=== PATIENT | female | born 1995 | race Caucasian/White ===

== ENCOUNTER 2016-04-16 22:27 | Emergency (ER) | payer MEDICAID, OTHER ==
--- NOTE | 2016-04-16 23:00 | EDPHY ---
H & P Stated Complaint: abd pain.left LQ radiate thru back Time Seen by Provider: 04/16/16 22:52 HPI/ROS: CHIEF COMPLAINT: Left lower quadrant abdominal pain x3 days HISTORY OF PRESENT ILLNESS: 20-year-old female to male transgender patient was not going to operation for this complaining of 3 days of left lower quadrant abdominal pain. No flank pain. No vaginal bleeding or discharge. No urinary complaints. No radiation of pain. No nausea or vomiting. No antecedent illness or GI symptoms History of right-sided ovarian cyst. PRIMARY CARE PROVIDER: REVIEW OF SYSTEMS: A ten point review of systems was performed and is negative with the exception of the items mentioned in the HPI PAST MEDICAL & SURGICAL HISTORY: Female to male transgender patient SOCIAL HISTORY: nonsmoker PHYSICAL EXAM (Prior to examination, patient consented to physical exam, hands were washed and my usual and customary physical exam procedures followed) 1) GENERAL: Well-developed, well-nourished, alert and oriented. Appears uncomfortable 2) HEAD: Normocephalic, atraumatic 3) HEENT: Pupils equal, round, reactive to light bilaterally. Sclera anicteric. 4) NECK: Full range of motion, no meningeal signs. 5) LUNGS: Clear auscultation bilaterally, no wheezes, no rhonchi, no retractions. 6) HEART: Regular rate and rhythm, no murmur, no heave, no gallop. 7) ABDOMEN: guarding left lower quadrant, tender to palpation left lower quadrant only . negative McBurney's, negative Solis's, negative peritoneal sign, 8) MUSCULOSKELETAL: No peripheral edema or discoloration. 9) BACK: No CVA tenderness 10) SKIN: No rash, no petechiae. 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 - Social History Smoking Status: Current every day smoker Constitutional: Initial Vital Signs Temperature (C) 36.7 C 04/16/16 22:30 Heart Rate 118 H 04/16/16 22:30 Respiratory Rate 20 04/16/16 22:30 Blood Pressure 130/74 H 04/16/16 22:30 O2 Sat (%) 98 04/16/16 22:30 O2 Delivery Mode Room Air Allergies/Adverse Reactions: No Known Allergies Allergy (Unverified 04/16/16 22:30) Home Medications: Medication Instructions Recorded Testosterone 100mg/ml IM inj (*) 04/16/16 Cephalexin [Keflex] 500 mg PO BID 7 Days 04/17/16 oxyCODONE/APAP 5/325 [Percocet 1 tab PO Q6 #10 tab 04/17/16 5/325] Medical Decision Making - Diagnostics Imaging: Ultrasound Pelvis Complete (Transabdominal ) Including Duplex/Doppler Imaging History: Left lower quadrant pain. Technique: Transabdominal only ultrasound images were obtained. Duplex/ Doppler imaging of adnexa. Findings: Uterus measures 7 x 3 x 5 cm. Endometrial thickness is 4 mm. No definite uterine leiomyomata. Right ovary surgically absent. Left ovary measures 3 x 2.5 x 2.4 cm. Left ovarian 2.4 x 1.9 x 1.7 cm simple cyst or dominant follicle. No significant free fluid in the pelvis. Color Doppler flow to left ovary without torsion. Impression: 1. Left ovary simple cyst or dominant follicle measuring 2.4 cm. 2. Prior right oophorectomy. 3. Normal flow to the left ovary without torsion or significant free fluid. 4. Homogeneous uterus. Findings and recommendations discussed with Emergency Department physician, Sumit Suggs PA-C at [phone] hour, today. Final report concurs with initial preliminary interpretation. Dictated By: Alexey Singh images reviewed by myself ED Course/Re-evaluation: Re-evaluation with serial exams most recently at 12:20 a.m.. He is feeling significant improvement in symptoms. Discussed the imaging results showing a left ovarian cyst. Doubt acute surgical abdominal pathology. Doubt acute appendicitis. Doubt diverticulitis. Doubt ovarian torsion. Noted to have bacteriuria which is cultured, started on Keflex. Doubt pyelonephritis. Doubt nephrolithiasis. Plan will be antibiotic, pain control and discharge. He notes significant reduction in pain, request 1 further dose of analgesia prior to discharge. Given OBGYN follow-up information and my usual customary Strict abdominal and precautions instructions. - Data Points Laboratory Results: Laboratory Results 04/16/16 23:05 04/16/16 23:05 04/16/16 04/16/16 23:50 23:05 WBC 10.39 H 10^3/uL (3.80-9.50) RBC 5.21 10^6/uL (4.18-5.33) Hgb 16.8 H g/dL (12.6-16.3) Hct 48.1 H % (38.0-47.0) MCV 92.3 fL (81.5-99.8) MCH 32.2 pg (27.9-34.1) MCHC 34.9 g/dL (32.4-36.7) RDW 12.4 % (11.5-15.2) Plt Count 284 10^3/uL (150-400) MPV 10.5 fL (8.7-11.7) Neut % (Auto) 76.8 H % (39.3-74.2) Lymph % (Auto) 17.0 % (15.0-45.0) [place] % (Auto) 4.9 % (4.5-13.0) Eos % (Auto) 0.7 % (0.6-7.6) Baso % (Auto) 0.4 % (0.3-1.7) Nucleat RBC Rel Count 0.0 % (0.0-0.2) Absolute Neuts (auto) 7.98 H 10^3/uL (1.70-6.50) Absolute Lymphs (auto) 1.77 10^3/uL (1.00-3.00) Absolute Monos (auto) 0.51 10^3/uL (0.30-0.80) Absolute Eos (auto) 0.07 10^3/uL (0.03-0.40) Absolute Basos (auto) 0.04 10^3/uL (0.02-0.10) Absolute Nucleated RBC 0.00 10^3/uL (0-0.01) Immature Gran % 0.2 % (0.0-1.1) Immature Gran # 0.02 10^3/uL (0.00-0.10) Sodium 144 mEq/L (134-144) Potassium 4.7 mEq/L (3.5-5.2) Chloride 109 mEq/L (97-110) Carbon Dioxide 22 mEq/l (22-31) Anion Gap 13 mEq/L (8-16) BUN 6 L mg/dL (7-23) Creatinine 0.8 mg/dL (0.6-1.0) Estimated GFR > 60 Glucose 94 mg/dL (70-100) Calcium 9.6 mg/dL (8.5-10.4) Total Bilirubin 0.7 mg/dL (0.1-1.4) Conjugated Bilirubin 0.4 mg/dL (0.0-0.5) Unconjugated Bilirubin 0.3 mg/dL (0.0-1.1) AST 40 IU/L (14-46) ALT 44 IU/L (9-52) Alkaline Phosphatase 78 IU/L (38-126) Total Protein 7.9 g/dL (6.3-8.2) Albumin 4.4 g/dL (3.5-5.0) Lipase 59.0 IU/L (23-300) Beta HCG, Qual NEGATIVE Specimen Hemolysis 140 Urine Color YELLOW Urine Appearance MODERATELY TURBID Urine pH 7.0 (5.0-7.5) Ur Specific [place] 1.011 (1.002-1.030) Urine Protein NEGATIVE (NEGATIVE) Urine Ketones NEGATIVE (NEGATIVE) Urine Blood 1+ H (NEGATIVE) Urine Nitrate POSITIVE H (NEGATIVE) Urine Bilirubin NEGATIVE (NEGATIVE) Urine Urobilinogen NEGATIVE EU (0.2-1.0) Ur Leukocyte Esterase 1+ H (NEGATIVE) Urine RBC Pending Urine WBC Pending Ur Epithelial Cells Pending Urine Glucose NEGATIVE (NEGATIVE) Medications Given: Discontinued Medications Hydromorphone HCl (Dilaudid) 1 mg IVP EDNOW ONE Stop: 04/16/16 23:09 Last Admin: 04/16/16 23:19 Dose: 1 mg Sodium Chloride (Ns) 1,000 mls @ 1,000 mls/hr IV EDNOW ONE Stop: 04/17/16 00:11 Last Admin: 04/16/16 23:19 Dose: 1,000 mls Ondansetron HCl (Zofran) 4 mg IVP EDNOW ONE Stop: 04/16/16 23:13 Last Admin: 04/16/16 23:19 Dose: 4 mg Departure - Departure Disposition: Home, Routine, Self-Care Clinical Impression: Left ovarian cyst Condition: Good Instructions: Ovarian Cyst (ED) Additional Instructions: Seek immediate medical attention if you develop new or worsening symptoms, if you develop fevers, chills, inability to tolerate oral intake or any other symptoms that concerns you. Referrals: Magaly Kumar MD [Medical Doctor] - 1-2 days without fail Prescriptions: Cephalexin [Keflex] 500 mg PO BID 7 Days oxyCODONE/APAP 5/325 [Percocet 5/325] 1 tab PO Q6 #10 tab
[2016-04-16] MEDS ORDERED: HYDROmorphONE/DILAUDID 1 MG/ML SYR IVP ONE (23:08)
[2016-04-16] MEDS ORDERED: NS 1,000 ML IV ONE (23:12)
[2016-04-16] MEDS ORDERED: ONDANSETRON 4 MG/2 ML VIAL IVP ONE (23:12)
[2016-04-16 23:24] LABS: % IMMATURE GRANULYOCYTES 0.2 % (0.0-1.1); ABSOLUTE IMMATURE GRANULOCYTES 0.02 10^3/uL (0.00-0.10); ADD DIFF? NO; ADD MORPH? NO; ADD SCAN? NO; ATYPICAL LYMPHOCYTE FLAG 20 (0-99); FRAGMENT RBC FLAG 0 (0-99); HEMATOCRIT 48.1 % (38.0-47.0); HEMOGLOBIN 16.8 g/dL (12.6-16.3); LEFT SHIFT FLG 0 (0-99); LIPEMIA HEMOLYSIS FLAG 90 (0-99); MEAN CELL HEMOGLOBIN 32.2 pg (27.9-34.1); MEAN CELL HEMOGLOBIN CONCENTR. 34.9 g/dL (32.4-36.7); MEAN CELL VOLUME 92.3 fL (81.5-99.8); MEAN PLATELET VOLUME 10.5 fL (8.7-11.7); PLATELET CLUMPS FLAG 0 (0-99); PLATELET COUNT 284 10^3/uL (150-400); RED BLOOD CELL COUNT 5.21 10^6/uL (4.18-5.33); RED CELL DISTRIBUTION WIDTH 12.4 % (11.5-15.2)
[2016-04-16 23:36] LABS: ALANINE AMINOTRANSFERASE 44 IU/L (9-52); ALBUMIN 4.4 g/dL (3.5-5.0); ALKALINE PHOSPHATASE 78 IU/L (38-126); ANION GAP 13 mEq/L (8-16); ASPARTATE AMINOTRANSFERASE 40 IU/L (14-46); BILIRUBIN,TOTAL 0.7 mg/dL (0.1-1.4); BILIRUBIN-CONJUGATED 0.4 mg/dL (0.0-0.5); BILIRUBIN-UNCONJUGATED 0.3 mg/dL (0.0-1.1); CALCIUM 9.6 mg/dL (8.5-10.4); CARBON DIOXIDE 22 mEq/l (22-31); CHLORIDE 109 mEq/L (97-110); CREATININE 0.8 mg/dL (0.6-1.0); GLOMERULAR FILTRATION RATE > 60; GLUCOSE 94 mg/dL (70-100); POTASSIUM 4.7 mEq/L (3.5-5.2); SODIUM 144 mEq/L (134-144); SPECIMEN HEMOLYSIS 140; TOTAL PROTEIN 7.9 g/dL (6.3-8.2)
[2016-04-16 23:56] VITALS: O2SAT 95
--- NOTE | 2016-04-17 00:03 | US ---
Ultrasound Pelvis Complete (Transabdominal ) Including Duplex/Doppler Imaging History: Left lower quadrant pain. Technique: Transabdominal only ultrasound images were obtained. Duplex/Doppler imaging of adnexa. Findings: Uterus measures 7 x 3 x 5 cm. Endometrial thickness is 4 mm. No definite uterine leiomyoma ta. Right ovary surgically absent. Left ovary measures 3 x 2.5 x 2.4 cm. Left ovarian 2.4 x 1.9 x 1.7 cm simple cyst or dominant follicle. No significant free fluid in the pelvis. Color Doppler flow to lef t ovary without torsion. Impression: 1. Left ovary simple cyst or dominant follicle measuring 2.4 cm. 2. Prior right oophorectomy. 3. Normal flow to the left ovary without torsion or significant free fluid. 4. Homogeneous uterus. Findings and recommendations discussed with Emergency Department physician, Sumit Suggs PA-C at [phone] hour, today. Final report concurs with initial preliminary interpretation.
[2016-04-17 00:23] LABS: COLOR YELLOW; LEUKOCYTE ESTERASE,URINE 1+ (NEGATIVE); NITRITE,URINE POSITIVE (NEGATIVE)
[2016-04-17] MEDS ORDERED: KETOROLAC 30 MG/1 ML SDV IVP ONE (00:23)
[2016-04-17] MEDS ORDERED: HYDROmorphONE/DILAUDID 1 MG/ML SYR IVP ONE (00:23)
[2016-04-17] MEDS ORDERED: CEPHALEXIN 500MG PREPACK#4 BTL TAKEHOME ONE (00:29)
[2016-04-17] MEDS ORDERED: CEPHALEXIN 500 MG CAP PO ONE (00:29)
[2016-04-17 00:31] LABS: AMORPHOUS PRESENT /hpf (NONE-1+); BACTERIA 4+ /hpf (NONE SEEN); WBC,URINE 15-25 /hpf (0-3)
[2016-04-17 00:46] VITALS: BP 106/82; PULSE 79; RESP 20; TEMP 97.7
== END 2016-04-17 00:50 | disposition home or self-care (01) ==
LOC: EDSEX
DX: N83.202 Unspecified ovarian cyst, left side (principal); F17.200 Nicotine dependence, unspecified, uncomplicated
CPT/HCPCS: 96374; J1170; J1885; J2405

== ENCOUNTER 2016-09-22 17:12 | Emergency (ER) | payer MEDICAID ==
[2016-09-22 17:48] VITALS: RESP 16; TEMP 99; O2SAT 97
[2016-09-22] MEDS ORDERED: NS 1,000 ML IV ONE ×2 (18:03)
[2016-09-22] MEDS ORDERED: ONDANSETRON 4 MG/2 ML VIAL IVP ONE ×2 (18:03→19:41)
--- NOTE | 2016-09-22 18:07 | EDPHY ---
H & P Stated Complaint: Drank "quite a bit" last night; feels hungover; vomiting Time Seen by Provider: 09/22/16 17:56 HPI/ROS: CHIEF COMPLAINT: Vomiting HISTORY OF PRESENT ILLNESS: Patient is a 25-year-old female transitioning to male who prefers to go by [place]. He comes to the emergency department complaining of vomiting. He states that it was his 21st birthday last night and he was drinking heavily. He has been vomiting all today but he thinks that it is unusual because it has been violent vomiting. He describes yellow gastric juice. No food. No blood. No diarrhea. No abdominal pain. No fever. Does have a history of left ovarian cysts. No urinary complaints. REVIEW OF SYSTEMS: Constitutional: denies: chills, fever, recent illness, recent injury EENTM: denies: blurred vision, double vision, nose congestion Respiratory: denies: cough, shortness of breath Cardiac: denies: chest pain, irregular heart rate, lightheadedness, palpitations Gastrointestinal/Abdominal: See HPI Genitourinary: denies: dysuria, frequency, hematuria, pain Musculoskeletal: denies: joint pain, muscle pain Skin: denies: lesions, rash, jaundice, bruising Neurological: denies: headache, numbness, paresthesia, tingling, dizziness, weakness Hematologic/Lymphatic: denies: blood clots, easy bleeding, easy bruising Immunologic/allergic: denies: HIV/AIDS, transplant EXAM: GENERAL: Well-appearing, well-nourished and in no acute distress. HEAD: Atraumatic, normocephalic. EYES: Pupils equal round and reactive to light, extraocular movements intact, sclera anicteric, conjunctiva are normal. ENT: TMs normal, nares patent, oropharynx clear without exudates. Moist mucous membranes. NECK: Normal range of motion, supple without lymphadenopathy or JVD. LUNGS: Breath sounds clear to auscultation bilaterally and equal. No wheezes rales or rhonchi. HEART: Regular rate and rhythm without murmurs, rubs or gallops. ABDOMEN: Soft, nontender, normoactive bowel sounds. No guarding, no rebound. No masses appreciated. BACK: No CVA tenderness, no spinal tenderness, step-offs or deformities EXTREMITIES: Normal range of motion, no pitting or edema. No clubbing or cyanosis. NEUROLOGICAL: Cranial nerves II through XII grossly intact. Normal speech, normal gait. 5/5 strength, normal movement in all extremities, normal sensation PSYCH: Normal mood, normal affect. SKIN: Warm, dry, normal turgor, no visible rashes or lesions. 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 - Family History Significant Family History: No pertinent family hx - Social History Smoking Status: Current every day smoker Alcohol Use: Sober Drug Use: None Constitutional: Initial Vital Signs Temperature (C) 37.2 C 09/22/16 17:35 Heart Rate 116 H 09/22/16 17:35 Respiratory Rate 16 09/22/16 17:35 Blood Pressure 123/102 H 09/22/16 17:35 O2 Sat (%) 97 09/22/16 17:35 O2 Delivery Mode Room Air Allergies/Adverse Reactions: No Known Allergies Allergy (Verified 09/22/16 17:44) Home Medications: Medication Instructions Recorded Testosterone 100mg/ml IM inj (*) 04/16/16 Ondansetron Odt [Zofran Odt 4 mg 4 mg PO Q4 PRN #20 tab 09/22/16 (RX)] Medical Decision Making ED Course/Re-evaluation: We discussed the patient's lab work. His he is feeling much better. His abdominal exam remains benign. I will treat him with continued IV fluids and another dose of Zofran and then he would like to go home. He denies having any urinary discomfort. He has not vomited again and his vital signs have normalized. The ED p.m. the patient continues to feel well. Abdominal exam benign on repeat examination. Eager to go home. Differential Diagnosis: Partial list of the Differential diagnosis considered include but were not limited to; gastritis, food poisoning, alcohol poisoning and although unlikely based on the history and physical exam, I also considered foot appendicitis, biliary disease, ovarian cyst, , urinary tract infection. I discussed these differential diagnoses and the plan with the patient as well as the usual and expected course. The patient understands that the diagnosis is provisional and that in medicine we are not always correct and that further workup is often warranted. Usual and customary warnings were given. All of the patient's questions were answered. The patient was instructed to return to the emergency department should the symptoms at all worsen or return, otherwise to followup with the physician as we discussed. - Data Points Laboratory Results: Laboratory Results 09/22/16 18:25 09/22/16 18:25 09/22/16 09/22/16 09/22/16 18:25 18:25 18:25 WBC RBC Hgb Hct MCV MCH MCHC RDW Plt Count MPV Neut % (Auto) Lymph % (Auto) [place] % (Auto) Eos % (Auto) Baso % (Auto) Nucleat RBC Rel Count Absolute Neuts (auto) Absolute Lymphs (auto) Absolute Monos (auto) Absolute Eos (auto) Absolute Basos (auto) Absolute Nucleated RBC Immature Gran % Immature Gran # Sodium 139 mEq/L mEq/L (134-144) Potassium 4.5 mEq/L mEq/L (3.5-5.2) Chloride 104 mEq/L mEq/L (97-110) Carbon Dioxide 18 mEq/l L mEq/l (22-31) Anion Gap 17 mEq/L H mEq/L (8-16) BUN 10 mg/dL mg/dL (7-23) Creatinine 0.8 mg/dL mg/dL (0.7-1.3) Estimated GFR > 60 Glucose 98 mg/dL mg/dL (70-100) Calcium 10.5 mg/dL H mg/dL (8.5-10.4) Total Bilirubin 1.2 mg/dL mg/dL (0.1-1.4) Conjugated Bilirubin 0.5 mg/dL mg/dL (0.0-0.5) Unconjugated Bilirubin 0.7 mg/dL mg/dL (0.0-1.1) AST 42 IU/L IU/L (17-59) ALT 35 IU/L IU/L (21-72) Alkaline Phosphatase 53 IU/L IU/L (38-126) Total Protein 8.4 g/dL H g/dL (6.3-8.2) Albumin 5.2 g/dL H g/dL (3.5-5.0) Lipase 33.0 IU/L IU/L (23-300) Beta HCG, Qual NEGATIVE Urine Color YELLOW Urine Appearance HAZY Urine pH 9.0 H (5.0-7.5) Ur Specific [place] 1.021 (1.002-1.030) Urine Protein 2+ H (NEGATIVE) Urine Ketones NEGATIVE (NEGATIVE) Urine Blood NEGATIVE (NEGATIVE) Urine Nitrate NEGATIVE (NEGATIVE) Urine Bilirubin NEGATIVE (NEGATIVE) Urine Urobilinogen NEGATIVE EU EU (0.2-1.0) Ur Leukocyte Esterase TRACE H (NEGATIVE) Urine RBC 1-3 /hpf /hpf (0-3) Urine WBC 15-25 /hpf H /hpf (0-3) Ur Epithelial Cells TRACE /lpf /lpf (NONE-1+) Urine Bacteria TRACE /hpf H /hpf (NONE SEEN) Urine Mucus TRACE /lpf /lpf (NONE-1+) Urine Glucose NEGATIVE (NEGATIVE) 09/22/16 18:25 WBC 16.24 10^3/uL H 10^3/uL (3.80-9.50) RBC 4.95 10^6/uL 10^6/uL (4.40-6.38) Hgb 15.8 g/dL g/dL (13.7-17.5) Hct 44.8 % % (40.0-51.0) MCV 90.5 fL fL (81.5-99.8) MCH 31.9 pg pg (27.9-34.1) MCHC 35.3 g/dL g/dL (32.4-36.7) RDW 12.7 % % (11.5-15.2) Plt Count 353 10^3/uL 10^3/uL (150-400) MPV 9.6 fL fL (8.7-11.7) Neut % (Auto) 89.7 % H % (39.3-74.2) Lymph % (Auto) 6.5 % L % (15.0-45.0) [place] % (Auto) 3.1 % L % (4.5-13.0) Eos % (Auto) 0.0 % L % (0.6-7.6) Baso % (Auto) 0.2 % L % (0.3-1.7) Nucleat RBC Rel Count 0.0 % % (0.0-0.2) Absolute Neuts (auto) 14.56 10^3/uL H 10^3/uL (1.70-6.50) Absolute Lymphs (auto) 1.05 10^3/uL 10^3/uL (1.00-3.00) Absolute Monos (auto) 0.51 10^3/uL 10^3/uL (0.30-0.80) Absolute Eos (auto) 0.00 10^3/uL L 10^3/uL (0.03-0.40) Absolute Basos (auto) 0.04 10^3/uL 10^3/uL (0.02-0.10) Absolute Nucleated RBC 0.00 10^3/uL 10^3/uL (0-0.01) Immature Gran % 0.5 % % (0.0-1.1) Immature Gran # 0.08 10^3/uL 10^3/uL (0.00-0.10) Sodium Potassium Chloride Carbon Dioxide Anion Gap BUN Creatinine Estimated GFR Glucose Calcium Total Bilirubin Conjugated Bilirubin Unconjugated Bilirubin AST ALT Alkaline Phosphatase Total Protein Albumin Lipase Beta HCG, Qual Urine Color Urine Appearance Urine pH Ur Specific [place] Urine Protein Urine Ketones Urine Blood Urine Nitrate Urine Bilirubin Urine Urobilinogen Ur Leukocyte Esterase Urine RBC Urine WBC Ur Epithelial Cells Urine Bacteria Urine Mucus Urine Glucose Medications Given: Discontinued Medications Sodium Chloride (Ns) 1,000 mls @ 0 mls/hr IV ONCE ONE; Wide Open PRN Reason: Protocol Stop: 09/22/16 18:04 Last Admin: 09/22/16 18:20 Dose: 1,000 mls Sodium Chloride (Ns) 1,000 mls @ 0 mls/hr IV ONCE ONE; Wide Open PRN Reason: Protocol Stop: 09/22/16 18:04 Last Admin: 09/22/16 18:30 Dose: 1,000 mls Ondansetron HCl (Zofran) 4 mg IVP EDNOW ONE Stop: 09/22/16 18:04 Last Admin: 09/22/16 18:20 Dose: 4 mg Ondansetron HCl (Zofran) 4 mg IVP EDNOW ONE Stop: 09/22/16 19:42 Last Admin: 09/22/16 19:50 Dose: 4 mg Departure - Departure Disposition: Home, Routine, Self-Care Clinical Impression: Vomiting Qualifiers: Vomiting type: unspecified Vomiting Intractability: non-intractable Nausea presence: with nausea Qualified Code(s): R11.2 - Nausea with vomiting, unspecified Condition: Fair Instructions: Acute Nausea and Vomiting (ED) Referrals: NONE *PRIMARY CARE P,. [Primary Care Provider] - As per Instructions Lisa Martell MD [Medical Doctor] - As per Instructions Prescriptions: Ondansetron Odt [Zofran Odt 4 mg (RX)] 4 mg PO Q4 PRN #20 tab PRN Reason: Nausea & Vomiting
[2016-09-22 18:33] LABS: % IMMATURE GRANULYOCYTES 0.5 % (0.0-1.1); ABSOLUTE IMMATURE GRANULOCYTES 0.08 10^3/uL (0.00-0.10); ADD DIFF? NO; ADD MORPH? NO; ADD SCAN? NO; ATYPICAL LYMPHOCYTE FLAG 0 (0-99); FRAGMENT RBC FLAG 0 (0-99); HEMATOCRIT 44.8 % (40.0-51.0); HEMOGLOBIN 15.8 g/dL (13.7-17.5); LEFT SHIFT FLG 0 (0-99); LIPEMIA HEMOLYSIS FLAG 90 (0-99); MEAN CELL HEMOGLOBIN 31.9 pg (27.9-34.1); MEAN CELL HEMOGLOBIN CONCENTR. 35.3 g/dL (32.4-36.7); MEAN CELL VOLUME 90.5 fL (81.5-99.8); MEAN PLATELET VOLUME 9.6 fL (8.7-11.7); PLATELET CLUMPS FLAG 0 (0-99); PLATELET COUNT 353 10^3/uL (150-400); RED BLOOD CELL COUNT 4.95 10^6/uL (4.40-6.38); RED CELL DISTRIBUTION WIDTH 12.7 % (11.5-15.2)
[2016-09-22 18:36] LABS: COLOR YELLOW; LEUKOCYTE ESTERASE,URINE TRACE (NEGATIVE); NITRITE,URINE NEGATIVE (NEGATIVE)
[2016-09-22 18:39] LABS: BACTERIA TRACE /hpf (NONE SEEN); MUCUS TRACE /lpf (NONE-1+); WBC,URINE 15-25 /hpf (0-3)
[2016-09-22 19:00] LABS: ALANINE AMINOTRANSFERASE 35 IU/L (21-72); ALBUMIN 5.2 g/dL (3.5-5.0); ALKALINE PHOSPHATASE 53 IU/L (38-126); ANION GAP 17 mEq/L (8-16); ASPARTATE AMINOTRANSFERASE 42 IU/L (17-59); BILIRUBIN,TOTAL 1.2 mg/dL (0.1-1.4); BILIRUBIN-CONJUGATED 0.5 mg/dL (0.0-0.5); BILIRUBIN-UNCONJUGATED 0.7 mg/dL (0.0-1.1); CALCIUM 10.5 mg/dL (8.5-10.4); CARBON DIOXIDE 18 mEq/l (22-31); CHLORIDE 104 mEq/L (97-110); CREATININE 0.8 mg/dL (0.7-1.3); GLOMERULAR FILTRATION RATE > 60; GLUCOSE 98 mg/dL (70-100); POTASSIUM 4.5 mEq/L (3.5-5.2); SODIUM 139 mEq/L (134-144); TOTAL PROTEIN 8.4 g/dL (6.3-8.2)
[2016-09-22 20:05] VITALS: BP 109/56; PULSE 99
== END 2016-09-22 20:17 | disposition home or self-care (01) ==
DX: R11.2 Nausea with vomiting, unspecified (principal); F17.200 Nicotine dependence, unspecified, uncomplicated; E86.9 Volume depletion, unspecified
CPT/HCPCS: 96374; J2405